=== PATIENT | female | born 1960 | race Caucasian/White ===

== ENCOUNTER 2016-07-11 18:52 | Emergency (ER) | payer OTHER ==
[~2016-07-11] VITALS: Ht 165.1 cm; Wt 124.3 kg
[~2016-07-11 18:52] MED LIST: ALPRAZOLAM0.5 M1 PO; AMITRIPTYLINE H50 MG PO; BENADRYL25 MG PO; CARBAMAZEPINE200 MG PO; CARISOPRODOL350 MG PO; CYANOCOBALAM1000 MCG PO; ENDOCET 5-3251 EACH PO; FOLIC ACID1 MG PO; FOLVITE1 MG PO; HYDROCHLOROTHIA50 MG PO; IBUPROFEN800 MG PO; INDOCIN50 MG PO; KEPPRA XR500 MG PO; KLOR-CON 1010 MEQ PO; LASIX40 MG PO; LEVOTHROID,S0.175 M1 PO; LYRICA75 MG PO; Martinic PO; NIZORAL 2% CREA15 GM TP; PERCOCET 7.51 TABLET PO; PREDNISONE10 MG PO; SIMVASTATIN10 M1 PO; SYNTHROID200 MCG PO; TYLENOL REGULA325 MG PO; VERAPAMIL HCL240 M2 PO; VERAPAMIL HCL240 MG PO; Xanax PO
[2016-07-11] MEDS ORDERED: AUGMENTIN875 MG PO (19:59)
[2016-07-11 20:20] VITALS: BP 155/91
== END 2016-07-11 20:20 | disposition home or self-care (01) ==
LOC: EME 18:52
DX: S61.052A Open bite of left thumb without damage to nail, initial encounter (principal); W54.0XXA Bitten by dog, initial encounter; Z23 Encounter for immunization; R56.9 Unspecified convulsions; I10 Essential (primary) hypertension; E78.5 Hyperlipidemia, unspecified; G89.29 Other chronic pain; E07.9 Disorder of thyroid, unspecified; F17.200 Nicotine dependence, unspecified, uncomplicated
CPT/HCPCS: 73130; 99281; 99284

== ENCOUNTER 2017-01-19 13:02 | Observation (INO) | payer OTHER ==
[~2017-01-19] VITALS: Ht 165.1 cm; Wt 125.2 kg
[~2017-01-19 13:02] MED LIST changes: +AUGMENTIN875 MG PO; +KLOR-CON 1010 ME1 PO; -KLOR-CON 1010 MEQ PO
[2017-01-19 14:03] LABS: HEMATOCRIT 43.8 % (36.0-46.0); MCH 33.6 PG (29.0-34.0); MCHC 33.6 G/DL (30.0-36.0); RBC DIS.WIDTH-CV 11.9 % (11.8-14.6); RBC DIS.WIDTH-SD 43.5 % (39-53); RED BLOOD COUNT 4.38 M/uL (3.80-5.20); WHITE BLOOD COUNT 3.9 K/uL (4.1-10.2)
[2017-01-19 14:13] LABS: CHLORIDE 101 mEq/L (99-109); POTASSIUM 5.9 mEq/L (3.7-5.4); SODIUM 140 mEq/L (136-147)
[2017-01-19 14:14] LABS: GLUCOSE 91 mg/dL (70-99)
[2017-01-19 14:16] LABS: ANION GAP 13 MEQ/L (2-14)
[2017-01-19 14:18] LABS: GFR ESTIMATE (CALCULATED) > 59 mL/min/
[2017-01-19 14:19] LABS: UREA NITROGEN (BUN) 13 mg/dL (9-23)
[2017-01-19 15:20] LABS: PLAT.SUFFICIENCY DECREASED; PLATELET CLUMPS PRESENT - PLATELET COUNTS APPEARS DECREASED
[2017-01-19 15:26] LABS: PLATELET COUNT UNABLE TO REPORT K/uL (156-360)
[2017-01-19] MEDS ORDERED: TEGRETOL200 MG PO (17:48)
[2017-01-19] MEDS ORDERED: PERCOCET 10/1 TABLET PO (17:50)
[2017-01-19] MEDS ORDERED: LYRICA100 MG PO (17:51)
[2017-01-19] MEDS ORDERED: VOLTAREN 1% GE100 GM TP (17:52)
[2017-01-19] MEDS ORDERED: ZOCOR20 MG PO (17:52)
[2017-01-19] MEDS ORDERED: MOTRIN800 MG PO (17:53)
[2017-01-19 18:41] LABS: HDL CHOLESTEROL 71 MG/DL (Desirable>=50); LDL CHOLESTEROL 124 mg/dL (Desirable<100); NON-HDL CHOLESTEROL 151 mg/dL (Desirable<160); TOTAL CHOLESTEROL 222 mg/dL (Desirable<200); TRIGLYCERIDES 134 MG/DL (Normal: <150)
[2017-01-19 18:56] LABS: Estimated Average Glucose 108 mg/dL (70-123); HEMOGLOBIN A1c (GLYCOHEMOGLOB) 5.4 % HGB (Below 5.7)
[2017-01-19 19:36] VITALS: BP 128/61
[2017-01-20 00:13] VITALS: BP 130/69
[2017-01-20 04:44] VITALS: BP 131/67
[2017-01-20 05:26] LABS: HEMATOCRIT 38.9 % (36.0-46.0); MCH 32.7 PG (29.0-34.0); MCHC 32.6 G/DL (30.0-36.0); MCV 100.3 FL (83-99); MEAN PLAT.VOLUME 9.9 uM^3 (9.5-12.4); RBC DIS.WIDTH-CV 11.9 % (11.8-14.6); RBC DIS.WIDTH-SD 44.2 % (39-53); RED BLOOD COUNT 3.88 M/uL (3.80-5.20); WHITE BLOOD COUNT 3.8 K/uL (4.1-10.2)
[2017-01-20 05:30] LABS: PLATELET COUNT 149 K/uL (156-360)
[2017-01-20 08:00] VITALS: BP 124/78
[2017-01-20 11:26] VITALS: BP 144/67
[2017-01-20] MEDS ORDERED: LOW DOSE ASPIRI81 M1 PO (13:03)
== END 2017-01-20 14:22 | disposition home or self-care (01) ==
LOC: EME 13:02 → EDOF 17:30 → 5WEST 17:30 → ENRESERV 17:36 → 5WEST 19:25
PROVIDERS: Internal Medicine
DX: G45.9 Transient cerebral ischemic attack, unspecified (principal); G43.909 Migraine, unspecified, not intractable, without status migrainosus; I10 Essential (primary) hypertension; E78.5 Hyperlipidemia, unspecified; E03.9 Hypothyroidism, unspecified; R56.9 Unspecified convulsions; G89.29 Other chronic pain; M51.36 Other intervertebral disc degeneration, lumbar region; Z82.3 Family history of stroke; E87.5 Hyperkalemia; F32.9 Major depressive disorder, single episode, unspecified; F17.200 Nicotine dependence, unspecified, uncomplicated; Z90.49 Acquired absence of other specified parts of digestive tract; Z88.6 Allergy status to analgesic agent
CPT/HCPCS: 70496; 70498; 70551; 71010; 71020; 80048; 80061; 83036; 84132; 85027; 92523 GN; 93005; 93306; 99281; 99285; G0378; G9162 GN CH; G9163 GN CH; G9164 GN CH; J1650; J7030

== ENCOUNTER 2017-06-14 01:01 | Emergency (ER) | payer OTHER ==
[~2017-06-14] VITALS: Ht 165.1 cm; Wt 118.1 kg
[~2017-06-14 01:01] MED LIST changes: +LOW DOSE ASPIRI81 M1 PO; +LYRICA100 MG PO; +MOTRIN800 MG PO; +PERCOCET 10/1 TABLET PO; +TEGRETOL200 MG PO; +VOLTAREN 1% GE100 GM TP; +ZOCOR20 MG PO
[2017-06-14 04:25] VITALS: BP 138/98
== END 2017-06-14 04:25 | disposition home or self-care (01) ==
LOC: EME 01:01
DX: M79.672 Pain in left foot (principal); M79.671 Pain in right foot; I10 Essential (primary) hypertension; E78.00 Pure hypercholesterolemia, unspecified; E03.9 Hypothyroidism, unspecified; R56.9 Unspecified convulsions; F32.9 Major depressive disorder, single episode, unspecified; Z88.6 Allergy status to analgesic agent
CPT/HCPCS: 73610; 73630; 99281; 99284; J3010

== ENCOUNTER 2017-08-07 21:51 | Emergency (ER) | payer OTHER ==
[~2017-08-07] VITALS: Ht 165.1 cm; Wt 71.3 kg
[2017-08-07 23:37] VITALS: BP 145/92
== END 2017-08-07 23:37 | disposition home or self-care (01) ==
LOC: EME 21:51
DX: S92.535A Nondisplaced fracture of distal phalanx of left lesser toe(s), initial encounter for closed fracture (principal); W22.8XXA Striking against or struck by other objects, initial encounter; I10 Essential (primary) hypertension; E78.5 Hyperlipidemia, unspecified; R56.9 Unspecified convulsions; F41.9 Anxiety disorder, unspecified; F32.9 Major depressive disorder, single episode, unspecified; Z90.49 Acquired absence of other specified parts of digestive tract; Z88.6 Allergy status to analgesic agent
CPT/HCPCS: 73630; 99281; 99283